=== PATIENT | male | born 1975 | race Caucasian/White ===

== ENCOUNTER 2019-05-10 23:24 | Emergency (ER) | payer OTHER, BC ==
[~2019-05-10] VITALS: Ht 185.4 cm; Wt 86.2 kg
[~2019-05-10 23:24] MED LIST: HYDACE5 PO; IBUP200; IBUP600 PO; IBUP800 PO; NAPR220; NAPR550 PO; OMEP20ER PO; PROACE100 PO; Percocet 5-3251 EACH PO; RANI150 PO; RXOXYACE PO; RXPROACE PO; SUCR1 PO; SULI150 PO
[2019-05-11] MEDS ORDERED: IBUP600 PO (00:49)
[2019-05-11] MEDS ORDERED: Norco 5-325 Ta1 EACH PO (00:49)
== END 2019-05-11 01:59 | disposition home or self-care (01) ==
LOC: ER 23:24
DX: S86.001A Unspecified injury of right Achilles tendon, initial encounter (principal); X50.9XXA Other and unspecified overexertion or strenuous movements or postures, initial encounter; Y99.0 Civilian activity done for income or pay; F17.210 Nicotine dependence, cigarettes, uncomplicated
CPT/HCPCS: 29515; 73630; 99283-25

== ENCOUNTER 2020-04-21 15:05 | Emergency (ER) | payer BC ==
[~2020-04-21] VITALS: Ht 180.3 cm; Wt 90.7 kg
[~2020-04-21 15:05] MED LIST changes: +Cyclobenzaprine5 MG PO; +Norco 5-325 Ta1 EACH PO; +VOLTAREN100 GM TOP
[2020-04-21] MEDS ORDERED: Prednisone20 MG PO (15:26)
[2020-04-21] MEDS ORDERED: BENADRYL25 MG PO (15:26)
== END 2020-04-21 15:38 | disposition home or self-care (01) ==
LOC: ER 15:05
DX: T63.441A Toxic effect of venom of bees, accidental (unintentional), initial encounter (principal); F17.200 Nicotine dependence, unspecified, uncomplicated
CPT/HCPCS: 99282; J7512; Q0163